=== PATIENT | female | born 2005 | race Caucasian/White ===

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

== ENCOUNTER → 2025-06-12 | Outpatient (CLI) | payer OTHER, SELFPAY | END | disposition home or self-care (01) | LOC: LABSPEC 15:18 | PROVIDERS: PCP Family Medicine; Referring Provider Otolaryngology; Visit Provider Otolaryngology | DX: J03.90 Acute tonsillitis, unspecified (principal) | CPT/HCPCS: 87070 ==

== ENCOUNTER 2025-06-21 09:31 | Emergency (ER) | payer OTHER, SELFPAY ==
[2025-06-21 09:31] VITALS: BP 129/88; PULSE 106; RESP 18; TEMP 37.3; O2SAT 98; BMI 34.5
[2025-06-21 09:32] VITALS: BP 129/88; PULSE 106; RESP 18; TEMP 37.3; O2SAT 98
--- OUTSIDE RECORDS SUMMARY | 2025-06-21 09:51 | XMS RPT_ITS | CCD ---
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 Refills Start End APRI 0.15 MG-0.03 MG TABLET 112 * 3 01/06/2025 12/08/2025 Route: ORAL Sig: Take 1 tablet by mouth once daily. Take active pills only. Start a new pack every 3 weeks. Medications Discontinued During This Encounter Prescriptions - Desogestrel-Ethinyl Estradiol (APRI) 0.15-0.03 mg per tablet (Discontinued) Take 1 tablet by mouth once daily. Disposition: Return in 1 year (on 01/06/2026) for Annual Exam. Follow-up and Disposition History for Encounter Date Provider Department Center 01/06/2025 [id number], RENEE [facility] Encounter Status:Closed by ANITHA HARRELL on 01/06/25 [facility] Knee 4 or More Viewson 10-17 Knee 4 or More Views [facility] Imaging Services [address] [place] [id number] Knee 4 or More Views MR#: [id number] Acct: [id number] Name: KIRTI MEJIAKIRSTY Rep #: [id number] : 2005 F 19 From: Garo Marti MD PCP: Dr. John Ordonez MD Status: REG CLI Study: Knee 4 or More Views Date of Exam: 10/17/24 Exam# [id number] Ordering Dr: Max Trinidad MD [id number] STUDY: X-RAY - RIGHT KNEE REASON FOR EXAM: Female, 19 years old. Decreased range of motion TECHNIQUE: 4 view(s) of the knee. COMPARISON: None. FINDINGS: Normal visualized distal femur. Normal visualized proximal tibia and fibula. Normal proximal tibiofibular articulation. Normal medial femorotibial compartment. Normal lateral femorotibial compartment. Normal patellofemoral articulation. The soft tissue structures are unremarkable. RAD/Knee 4 or More Views IMPRESSION: Normal x-ray examination of the knee. Electronically Signed: Walter Marti MD at 13:25 EST , CC: Dr. John Ordonez MD; Dr. Max Trinidad MD Hotel Reservationist: Signed [facility] [id number] 07-16-2021 Date of Onset [id number] Invalid Interpretation Code [facility] ([place]) Comment on above: Performed By: #### C OVD19 #### [place] [id number] Employed in Healthcare No [facility] ([place]) Comment on above: Performed By: #### C OVD19 #### [place] [address] First Test Unknown [facility] ([place]) Comment on above: Performed By: #### C OVD19 #### [place] [phone] Hospitalized No [facility] ([place]) Comment on above: Performed By: #### C OVD19 #### [place] [phone] ICU No [facility] ([place]) Comment on above: Performed By: #### C OVD19 #### [place] [address] Not [facility] ([place]) Comment on above: Performed By: #### C OVD19 #### [facility] [address] [place] [phone] Resides in Congregate Care Setting No Normal [facility] ([place]) Comment on above: Performed By: #### C OVD19 #### [facility] [address] [place] [address] SARS-CoV-2 (COVID-19) RNA KEYSHA+probe Ql (Unsp spec) Positive Abnormal Negative [facility] ([place]) Comment on above: Performed By: #### C OVD19 #### [facility] [address] [place] [address] SARS-CoV-2 (COVID-19) RNA KEYSHA+probe Ql (Unsp spec) Normal [facility] ([place]) Comment on above: Result Comment: Posi tive results are indicative of the presence of SARS-CoV-2 RNA; clinical correlation with patient history and other diagnostic information is necessary to determine patient infection status. Positive results do not rule out bacterial infection or co-infection with other viruses. The agent detected may not be the definite cause of disease. Laboratories within the [facility] and its territories are required to report all positive results to the appropriate public health authorities. Detection of analyte target(s) does not imply that the corresponding virus(es) are infectious or are the causative agents for clinical symptoms. There is a risk of false positive values resulting from cross-contamination by target organisms, their nucleic acids or amplified product, or from non-specific signals in the assay. BRUCE SARS-CoV-2 Assay is a Real-Time reverse-transcriptase polymerase chain reaction (RT-PCR) based qualitative in vitro diagnostic test intended for the qualitative detection of nucleic acid from the SARS-CoV-2 in nasopharyngeal swab specimens collected from individuals suspected of COVID-19 by their healthcare provider. Testing is limited to laboratories certified under the Clinical Laboratory Improvement Amendments of 1988 (CLIA), 42 U.S.C. ?263a, to perform moderate and high complexity tests. COVID-19 Int Performed By: #### C OVD19 #### [facility] [address] [place] [phone] Symptomatic as Defined by CDC Yes Normal [facility] ([place]) Comment on above: Performed By: #### C OVD19 #### [facility] [address] [place] [address] XR CHEST 1 VIEWon 07-16-2021 XR CHEST 1 VIEW ORIGINAL EXAMINATION: ONE XRAY VIEW OF THE CHEST07/16/2021 9:16 am CHEST ONE VIEW AP/PA TECHNIQUE: One view chest radiograph. COMPARISON: None. HISTORY: ORDERING SYSTEM PROVIDED HISTORY: Reason for Exam: SOB/cough/fever Shortness of breath cough and fever. FINDINGS: The cardiomediastinal silhouette appears unremarkable. There are no pleural effusions or pneumothoraces appreciated. No focal consolidations are appreciated. The osseous and soft tissue structures are unremarkable. IMPRESSION: 1. No evidence of acute cardiopulmonary process. I have personally reviewed the images of this examination, agree with resident's findings and interpretation. Interpreted by: Osito Magallon Preliminary Report By: Dereje Ordonez Electronically signed By Osito Magallon Dictated Date: 07/16/2021 9:44:59 AM Prelim Date: 07/16/2021 10:15:05 AM Sign Date: 07/16/2021 10:35:39 AM Ordering Provider: TERESITA Kumar [facility] ([place]) CBC Auto Differentialon 09-0 Basophils (Bld) [#/Vol] 0.0 10*3/uL 0 - 0.2 K/uL [place] Basophils/100 WBC (Bld) 0.3 % [place] Eosinophils (Bld) [#/Vol] 0.0 10*3/uL 0 - 0.7 K/uL [place] Eosinophils/100 WBC (Bld) 0.2 % [place] Erythrocyte distribution width (RBC) [Ratio] 13.4 % 11.5 - 14.5 % [place] Hematocrit (Bld) [Volume fraction] 35.3 % Low 36 - 46 % [place] Hemoglobin (Bld) [Mass/Vol] 11.8 g/dL Low 12 - 16 g/dL [place] Interpretation and review of laboratory results Abnormal [place] Lymphocytes (Bld) [#/Vol] 1.9 10*3/uL 1.2 - 5.2 K/uL [place] Lymphocytes/100 WBC (Bld) 16.7 % [place] MCH (RBC) [Entitic mass] 29.3 pg 25 - 35 pg [place] MCHC (RBC) [Mass/Vol] 33.5 % 31 - 37 % [place] MCV (RBC) [Entitic vol] 87.4 fL 78 - 102 fL [place] Monocytes (Bld) [#/Vol] 0.9 10*3/uL High 0.2 - 0.8 K/uL [place] Monocytes/100 WBC (Bld) 7.6 % [place] Neutrophils Absolute 8.4 K/uL High 1.8 - 8 K/uL [place] Neutrophils/100 WBC (Bld) 75.2 % [place] Platelets (Bld) [#/Vol] 276 10*3/uL 130 - 400 K/uL [place] RBC (Bld) [#/Vol] 4.04 10*6/uL [place] WBC (Bld) [#/Vol] 11.2 10*3/uL 4.5 - 13 K/uL [place] CBC With Platelet and Differ entialon 08-02-2020 Basophils (Bld) [#/Vol] 0.0 10*3/uL Normal 0.0-0.2 [place] Comment on above: Performed By: #### C BCWD #### [facility] [address] [place] [address] Basophils/100 WBC (Bld) 0.3 % Normal [place] Comment on above: Performed By: #### C BCWD #### [facility] [address] [place] [address] Eosinophils (Bld) [#/Vol] 0.0 10*3/uL Normal 0.0-0.7 [place] Comment on above: Performed By: #### C BCWD #### [facility] [address] [place] [address] Eosinophils/100 WBC (Bld) 0.2 % Normal [place] Comment on above: Performed By: #### C BCWD #### [facility] [address] [place] [address] Erythrocyte distribution width (RBC) [Ratio] 13.4 % Normal 11.5-14.5 [place] Comment on above: Performed By: #### C BCWD #### [facility] [address] [place] [address] Hematocrit (Bld) [Volume fraction] 35.3 % Low 36.0-46.0 [place] Comment on above: Performed By: #### C BCWD #### [facility] [address] [place] [address] Hemoglobin (Bld) [Mass/Vol] 11.8 g/dL Low 12.0-16.0 [place] Comment on above: Performed By: #### C BCWD #### [facility] [address] [place] [address] Lymphocytes (Bld) [#/Vol] 1.9 10*3/uL Normal 1.2-5.2 [place] Comment on above: Performed By: #### C BCWD #### [facility] [address] [place] [address] Lymphocytes/100 WBC (Bld) 16.7 % Normal [place] Comment on above: Performed By: #### C BCWD #### [facility] [address] [place] [address] MCH (RBC) [Entitic mass] 29.3 pg Normal 25.0-35.0 [place] Comment on above: Performed By: #### C BCWD #### [facility] [address] [place] [address] MCHC (RBC) [Mass/Vol] 33.5 % Normal 31.0-37.0 [place] Comment on above: Performed By: #### C BCWD #### [facility] [address] [place] [address] MCV (RBC) [Entitic vol] 87.4 fL Normal 78.0-102.0 [place] Comment on above: Performed By: #### C BCWD #### [facility] [address] [place] [address] Monocytes (Bld) [#/Vol] 0.9 10*3/uL Critically high 0.2-0.8 [place] Comment on above: Performed By: #### C BCWD #### [facility] [address] [place] [address] Monocytes/100 WBC (Bld) 7.6 % Normal [place] Comment on above: Performed By: #### C BCWD #### [facility] [address] [place] [address] Neutrophils (Bld) [#/Vol] 8.4 10*3/uL Critically high 1.8-8.0 [place] Comment on above: Performed By: #### C BCWD #### [facility] [address] [place] [address] Neutrophils/100 WBC (Bld) 75.2 % Normal [place] Comment on above: Performed By: #### C BCWD #### [facility] [address] [place] [address] Platelets (Bld) [#/Vol] 276 10*3/uL Normal 130-400 [place] Comment on above: Performed By: #### C BCWD #### [facility] [address] [place] [address] RBC (Bld) [#/Vol] 4.04 10*6/uL Low 4.10-5.10 [place] Comment on above: Performed By: #### C BCWD #### [facility] [address] [place] [address] WBC (Bld) [#/Vol] 11.2 10*3/uL Normal 4.5-13.0 [place] Comment on above: Performed By: #### C BCWD #### [facility] [address] [place] [address] CT ABDOMEN PELVIS W IV CONTR Kathie 08-02-2020 CT ABDOMEN PELVIS W IV CONTRAST EXAM: CT ABDOMEN PELVIS W IV CONTRAST History: Lower abdominal pain after injury. Technique: Multiple contiguous axial images were obtained of the abdomen and pelvis from an level of the lung bases through the ischial tuberosities with contrast. Multiplanar reformats were obtained. Comparison: None available Findings: Lung bases are clear. The liver, gallbladder, spleen, stomach, pancreas, and adrenal glands are within normal limits. The kidneys enhance uniformly. No urinary tract calculi or hydronephrosis. Urinary bladder is well distended. Abdominal aorta is nonaneurysmal . No retroperitoneal or abdominal/pelvic lymphadenopathy. No small bowel obstruction. No overt colonic mass or pericolonic inflammation. Appendix is within normal limits. No free fluid or free air. There is a focal area of skin thickening and subcutaneous soft tissue edema of the lower abdominal wall to the right of midline most likely relating to a contusion given the patient's history. Osseous structures of the abdomen/pelvis are within normal limits. IMPRESSION: No acute intra-abdominal process. Small area of soft tissue contusion of the right lower ventral abdominal wall. All CT scans at this facility use dose modulation, iterative reconstruction, and/or weight based dosing when appropriate to reduce radiation dose to as low as reasonably achievable. Interpreted by: Luca Ron DO Signed by: Luca Ron DO 08/03/20 Final result Normal [place] Comprehensive Metabolic Pane mariela 08-02-2020 Albumin [Mass/Vol] 4.5 g/dL Normal 3.5-4.6 [place] Comment on above: Performed By: #### C MP #### [facility] [address] [place] [address] ALP [Catalytic activity/Vol] 81 U/L Normal 0-187 [place] Comment on above: Performed By: #### C MP #### [facility] [address] [place] [address] ALT [Catalytic activity/Vol] 14 U/L Normal 0-33 [place] Comment on above: Performed By: #### C MP #### [facility] [address] [place] [address] Anion gap [Moles/Vol] 14 mmol/L Normal 9-15 [place] Comment on above: Performed By: #### C MP #### [facility] [address] [place] [address] AST [Catalytic activity/Vol] 24 U/L Normal 0-35 [place] Comment on above: Performed By: #### C MP #### [facility] [address] [place] [address] Bilirubin [Mass/Vol] 0.6 mg/dL Normal 0.2-0.7 [place] Comment on above: Performed By: #### C MP #### [facility] [address] [place] [address] Calcium [Mass/Vol] 9.7 mg/dL Normal 8.5-9.9 [place] Comment on above: Performed By: #### C MP #### [facility] [address] [place] [address] Chloride [Moles/Vol] 106 mmol/L Normal 95-107 [place] Comment on above: Performed By: #### C MP #### [facility] [address] [place] [address] CO2 [Moles/Vol] 22 mmol/L Normal 20-31 [facility] Comment on above: Performed By: #### C MP #### [facility] [address] [place] [address] Creatinine [Mass/Vol] 0.88 mg/dL Normal 0.50-0.90 [place] Comment on above: Performed By: #### C MP #### [facility] [address] [place] [address] GFR/1.73 sq M predicted among blacks MDRD (S/P/Bld) [Vol rate/Area] mL/min/{1.73_m2} Normal >60 [place] Comment on above: Result Comment: >60 mL/min/1.73m2 EGFR, calc. for ages 18 and older using the MDRD formula (not corrected for weight), is valid for stable renal function. Performed By: #### C MP #### [facility] [address] [place] [address] GFR/1.73 sq M.predicted MDRD (S/P/Bld) [Vol rate/Area] mL/min/{1.73_m2} Normal >60 [place] Comment on above: Result Comment: >60 mL/min/1.73m2 EGFR, calc. for ages 18 and older using the MDRD formula (not corrected for weight), is valid for stable renal function. Performed By: #### C MP #### [facility] [address] [place] [address] Globulin (S) [Mass/Vol] 3.1 g/dL Normal 2.3-3.5 [place] Comment on above: Performed By: #### C MP #### [facility] [address] [place] [address] Glucose [Mass/Vol] 86 mg/dL Normal 70-99 [place] Comment on above: Performed By: #### C MP #### [facility] [address] [place] [address] Potassium [Moles/Vol] 4.0 mmol/L Normal 3.4-4.9 [place] Comment on above: Performed By: #### C MP #### [facility] [address] [place] [address] Protein [Mass/Vol] 7.6 g/dL Normal 6.3-8.0 [place] Comment on above: Performed By: #### C MP #### [facility] [address] [place] [address] Sodium [Moles/Vol] 142 mmol/L Normal 135-144 [place] Comment on above: Performed By: #### C MP #### [facility] [address] [place] [address] Urea nitrogen [Mass/Vol] 19 mg/dL Critically high 5-18 [place] Comment on above: Performed By: #### C MP #### [facility] [address] [place] [address] Albumin [Mass/Vol] 4.5 g/dL 3.5 - 4.6 g/dL [place] ALP [Catalytic activity/Vol] 81 U/L 0 - 187 U/L [place] ALT [Catalytic activity/Vol] 14 U/L 0 - 33 U/L [place] Anion gap [Moles/Vol] 14 mmol/L [place] AST [Catalytic activity/Vol] 24 U/L 0 - 35 U/L [place] Bilirubin Ql (U) 0.6 mg/dL 0.2 - 0.7 mg/dL [place] Calcium [Mass/Vol] 9.7 mg/dL 8.5 - 9.9 mg/dL [place] Chloride [Moles/Vol] 106 mmol/L [place] CO2 [Moles/Vol] 22 mmol/L [place] Creatinine [Mass/Vol] 0.88 mg/dL 0.5 - 0.9 mg/dL [place] GFR >60.0 >60 [place] Comment on above: >60 mL/min/1.73m2 EG FR, calc. for ages 18 and older using the MDRD formula (not corrected for weight), is valid for stable renal function. GFR Non- >60.0 >60 [place] Comment on above: >60 mL/min/1.73m2 EG FR, calc. for ages 18 and older using the MDRD formula (not corrected for weight), is valid for stable renal function. Globulin (S) [Mass/Vol] 3.1 g/dL 2.3 - 3.5 g/dL [place] Glucose [Mass/Vol] 86 mg/dL 70 - 99 mg/dL [place] Interpretation and review of laboratory results Abnormal [place] Potassium [Moles/Vol] 4.0 mmol/L [place] Protein [Mass/Vol] 7.6 g/dL 6.3 - 8 g/dL [place] Sodium [Moles/Vol] 142 mmol/L [place] Urea nitrogen [Mass/Vol] 19 mg/dL High 5 - 18 mg/dL [place] HCG Qualitative, Serumon hCG Qual Negative [place] Lipaseon 08-02-2020 Lipase [Catalytic activity/Vol] 20 U/L Normal 95 [place] Comment on above: Performed By: #### L IPAS #### [facility] [address] [place] [address] Lipase [Catalytic activity/Vol] 20 U/L U/L [place] Magnesiumon 08-02-2020 Magnesium [Mass/Vol] 2.1 mg/dL Normal 1.7-2.2 [place] Comment on above: Performed By: #### M G #### [facility] [address] [facility] [address] Magnesium [Mass/Vol] 2.1 mg/dL 1.7 - 2.2 mg/dL [place] Serum HCG Qualitativeon HCG.beta subunit Qn Negative Normal [place] Comment on above: Performed By: #### S HCG #### [facility] [address] [facility] [address] Urinalysison 08-02-2020 Bilirubin Urine Negative Negative [place], [place] Blood, Urine Negative Negative [place], [place] Clarity, UA Clear Clear [place] Color, UA Yellow Straw/Yellow [place] Glucose, Ur Negative Negative mg/dL [place] Ketones Ql (U) Trace Negative mg/dL [place] Leukocyte esterase Test strip Ql (U) Negative Negative [place] Nitrite, Urine Negative Negative [place] pH, UA 5.5 [place] Protein (U) [Mass/Vol] Negative Negative mg/dL [place] Specific [place], UA 1.025 [place] Urobilinogen, Urine 0.2 <2.0 E.U./dL [facility] [place], [place] Urinalysis, reflex to micros copicon 08-02-2020 Bilirubin Ql (U) Negative Normal Negative [facility] Comment on above: Performed By: #### U A #### [facility] [address] [place] [address] Clarity (U) Clear Normal Clear [place] Comment on above: Performed By: #### U A #### [facility] [address] [place] [address] Color (U) Yellow Normal Straw/[place] Comment on above: Performed By: #### U A #### [facility] [address] [place] [address] Glucose Ql (U) Negative Normal Negative [facility] Comment on above: Performed By: #### U A #### [facility] [address] [place] [address] Hemoglobin Ql (U) Negative Normal Negative [facility] Comment on above: Performed By: #### U A #### [facility] [address] [place] [address] Ketones Ql (U) Trace Normal Negative [facility] Comment on above: Performed By: #### U A #### [facility] [address] [place] [address] Leukocyte esterase Test strip Ql (U) Negative Normal Negative [place] Comment on above: Performed By: #### U A #### [facility] [address] [place] [address] Nitrite Ql (U) Negative Normal Negative [facility] Comment on above: Performed By: #### U A #### [facility] [address] [place] [address] pH (U) 5.5 [pH] Normal 5.0-9.0 [place] Comment on above: Performed By: #### U A #### [facility] [address] [place] [address] Protein Ql (U) Negative Normal Negative [facility] Comment on above: Performed By: #### U A #### [facility] [address] [place] [address] Specific gravity (U) [Rel density] 1.025 Normal 1.005-1.03 [place] Comment on above: Performed By: #### U A #### [facility] [address] [place] [address] Urobilinogen Qn (U) 0.2 {Brent'U}/dL Normal < 2.0 [place] Comment on above: Performed By: #### U A #### [facility] [address] [place] [address] Vital Signs Date Time Vital Sign Value Performing Clinician Facility 04-07-2025 15:25-0400 Body mass index (BMI) [Ratio] 36.04 kg/m2 Anitha Farwell WHEEL MILL OPERATOR.SAFETY AND SECURITY OFFICER Work Phone: [facility] 04-07-2025 15:25-0400 Body weight 98.25 kg Anitha Farwell WHEEL MILL OPERATOR.SAFETY AND SECURITY OFFICER Work Phone: [facility] 04-07-2025 15:25-0400 Diastolic blood pressure 74 mm[Hg] Anitha Farwell WHEEL MILL OPERATOR.SAFETY AND SECURITY OFFICER Work Phone: [facility] 04-07-2025 15:25-0400 Systolic blood pressure 122 mm[Hg] Anitha Tavo WHEEL MILL OPERATOR.SAFETY AND SECURITY OFFICER Work Phone: [facility] 03-30-2025 09:50-0400 Body temperature 99.3 [degF] Dr. John Ordonez MD Work Phone: [facility] 03-30-2025 09:50-0400 Diastolic blood pressure 60 mm[Hg] Dr. John Ordonez MD Work Phone: [facility] 03-30-2025 09:50-0400 Heart rate 68 /min Dr. John Ordonez MD Work Phone: [facility] 03-30-2025 09:50-0400 Respiratory rate 14 /min Dr. John Ordonez MD Work Phone: [facility] 03-30-2025 09:50-0400 SaO2% (BldA) [Mass fraction] 98 % Dr. John Ordonez MD Work Phone: [facility] 03-30-2025 09:50-0400 Systolic blood pressure 108 mm[Hg] Dr. John Ordonez MD Work Phone: [facility] 01-06-2025 09:01-0500 Body height 165.1 cm Anitha Tavo WHEEL MILL OPERATOR.SAFETY AND SECURITY OFFICER Work Phone: [facility] 01-06-2025 09:01-0500 Body mass index (BMI) [Ratio] 35.78 kg/m2 Anitha Tavo WHEEL MILL OPERATOR.SAFETY AND SECURITY OFFICER Work Phone: [facility] 01-06-2025 09:01-0500 Body weight 97.52 kg Anitha Farwell WHEEL MILL OPERATOR.SAFETY AND SECURITY OFFICER Work Phone: [facility] 01-06-2025 09:01-0500 Diastolic blood pressure 78 mm[Hg] Anitha Tavo WHEEL MILL OPERATOR.SAFETY AND SECURITY OFFICER Work Phone: [facility] 01-06-2025 09:01-0500 Systolic blood pressure 112 mm[Hg] Anitha Farwell WHEEL MILL OPERATOR.SAFETY AND SECURITY OFFICER Work Phone: [facility] 01-16-2024 07:27-0500 Body weight 98.7 kg Anitha Tavo WHEEL MILL OPERATOR.SAFETY AND SECURITY OFFICER Work Phone: [facility] 01-16-2024 07:27-0500 Diastolic blood pressure 70 mm[Hg] Anitha Farwell WHEEL MILL OPERATOR.SAFETY AND SECURITY OFFICER Work Phone: [facility] 01-16-2024 07:27-0500 Systolic blood pressure 118 mm[Hg] Anitha Tavo WHEEL MILL OPERATOR.SAFETY AND SECURITY OFFICER Work Phone: [facility] [facility] 01-04-2024 09:45-0500 Body weight 98.34 kg Anitha Farwell WHEEL MILL OPERATOR.SAFETY AND SECURITY OFFICER Work Phone: [facility] 01-04-2024 09:45-0500 Diastolic blood pressure 66 mm[Hg] Anitha Farwell WHEEL MILL OPERATOR.SAFETY AND SECURITY OFFICER Work Phone: [facility] 01-04-2024 09:45-0500 Systolic blood pressure 104 mm[Hg] Anitha Tavo WHEEL MILL OPERATOR.SAFETY AND SECURITY OFFICER Work Phone: [facility] 05-26-2023 07:16-0400 Body weight 106.14 kg Anitha Farwell WHEEL MILL OPERATOR.SAFETY AND SECURITY OFFICER Work Phone: [facility] 05-26-2023 07:16-0400 Diastolic blood pressure 74 mm[Hg] Anitha Farwell WHEEL MILL OPERATOR.SAFETY AND SECURITY OFFICER Work Phone: [facility] 05-26-2023 07:16-0400 Systolic blood pressure 118 mm[Hg] Anitha Tavo WHEEL MILL OPERATOR.SAFETY AND SECURITY OFFICER Work Phone: [facility] 08-02-2020 20:10-0400 BP Diastolic 70 mm[Hg] [facility] [place] 08-02-2020 20:10-0400 BP Systolic 116 mm[Hg] [facility] [place] 08-02-2020 20:10-0400 Pulse (Heart Rate) 69 /min [facility], [place] 08-02-2020 20:10-0400 Pulse Oximetry 96 % [facility] [place] 08-02-2020 18:46-0400 Body Temperature 98.71 [degF] [facility], [place] 08-02-2020 18:46-0400 Body weight 101.7 kg [place], [place] 08-02-2020 18:46-0400 Respiratory Rate 22 /min [facility] Encounters Encounter Date Encounter Type Care Provider Facility Start: 06-12-2025 End: 06-12-[address] John Ordonez MD Work Phone: -Laboratory Specimen Start: 06-12-2025 End: 06-12-[address] Matias Luis MD -Laboratory Specimen Work Phone: Start: 06-12-2025 End: 06-12-2025 ambulatory John Ordonez Facility:[facility] Start: 04-08-2025 End: 04-08-2025 ambulatory Anitha Tavo WHEEL MILL OPERATOR.SAFETY AND SECURITY OFFICER Work Phone: OB/Gynecology Comment on above: Test Start: 04-08-2025 End: 06-08-2025 Follow-up encounter Anihta Tavo WHEEL MILL OPERATOR.SAFETY AND SECURITY OFFICER Work Phone: OB/Gynecology Start: 04-07-2025 End: 04-07-2025 Patient encounter procedure Anitha Farwell WHEEL MILL OPERATOR.SAFETY AND SECURITY OFFICER Work Phone: OB/Gynecology Comment on above: Vaginal discharge (P rimary Dx); Vaginal odor Start: 04-07-2025 End: 04-07-2025 ambulatory ANITHA TAVO Facility:[facility] Start: 03-30-2025 End: 03-30-2025 Patient encounter procedure Gideon Dahl DELIVERER [facility] Work Phone: Start: 03-30-2025 End: 03-30-2025 ambulatory John Ordonez Facility:[facility] Start: 01-15-2025 End: 01-17-2025 ambulatory Anitha Farwell WHEEL MILL OPERATOR.SAFETY AND SECURITY OFFICER Work Phone: OB/Gynecology Comment on above: Supplements Start: 01-06-2025 End: 01-06-2025 ambulatory Anitha Tavo WHEEL MILL OPERATOR.SAFETY AND SECURITY OFFICER Work Phone: OB/Gynecology Start: 01-06-2025 End: 01-06-2025 Patient encounter procedure Anitha Farwell WHEEL MILL OPERATOR.SAFETY AND SECURITY OFFICER Work Phone: OB/Gynecology Comment on above: Encounter for gyneco logical examination (general) (routine) without abnormal findings (Primary Dx); Encounter for surveillance of contraceptive pills Appointment Start: 01-06-2025 End: 01-06-2025 Patient encounter status Anitha Farwell WHEEL MILL OPERATOR.SAFETY AND SECURITY OFFICER Work Phone: [facility] Start: 11-18-2024 End: 11-18-2024 Refill Anitha Farwell WHEEL MILL OPERATOR.SAFETY AND SECURITY OFFICER Work Phone: OB/Gynecology Comment on above: Refill Request Medication Start: 10-17-2024 End: 10-17-2024 ambulatory John Ordonez Facility:[facility] Start: 01-19-2024 Telephone encounter Anitha [facility] WHEEL MILL OPERATOR.SAFETY AND SECURITY OFFICER Work Phone: OB/Gynecology Comment on above: Results Start: 01-16-2024 End: 01-16-2024 Patient encounter procedure Anitha Farwell WHEEL MILL OPERATOR.SAFETY AND SECURITY OFFICER Work Phone: OB/Gynecology Comment on above: Abnormal uterine ble eding (AUB) (Primary Dx); Vaginal irritation Start: 01-10-2024 ambulatory Anitha Farwell WHEEL MILL OPERATOR.SAFETY AND SECURITY OFFICER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 exercised in using it in the provision of clinical care. This summary normalizes information from multiple sources, and as a consequence, information in this document may materially change the coding, format and clinical context of patient data. In addition, data may be omitted in some cases. CLINICAL DECISIONS SHOULD BE BASED ON THE PRIMARY CLINICAL RECORDS. [employer] [facility]. provides no warranty or guarantee of the accuracy or completeness of information in this document.
--- NOTE | 2025-06-21 10:00 | EX.ED.VIS.UR ---
HPI HPI - URI History of Present Illness Chief Complaint: Sore Throat Informant: patient Narrative Narrative: Patient is a 20-year-old female with no significant past medical history presenting for recurrent sore throat, fever and tonsillar swelling. Patient has had 4 episodes over the past few months similar to this. She most recently was on a course of Augmentin 2 weeks ago. States she got better and had a throat culture before my Dr. Luis which was negative so she was told that her tonsils do not need to come out. She developed vomiting a couple days ago and then a fever 2 days ago with a Tmax of 1-2.6. Been taking ibuprofen but states last night it was not helping. Did not have anything today. Notes that she has had increased pain and swelling of her tonsils. It started to make her feel short of breath. She states after vomiting she did have some bleeding from her tonsils. She came in for further evaluation. has not had a Monospot test throughout this. She denies any rash or other complaints. ROS ROS ED Constitutional Constitutional ED: Reports chills and fever(s) Eyes Eyes: Denies change in vision ENT ENT ED: Reports sore throat; Denies rhinorrhea Cardiovascular Cardiovascular: Denies chest pain Respiratory/Chest Respiratory/Chest: Reports dyspnea and other Details: Reports shortness of breath associated to tonsillar swelling ; Denies cough Gastrointestinal Gastrointestinal: Reports vomiting; Denies abdominal pain Musculoskeletal Musculoskeletal: Reports myalgias; Denies arthralgias Neurologic Neurologic: Reports headache(s); Denies weakness PFSH PFSH Medical History No active medical problems Medical History no medical history Home Medications ?Medication ?Instructions ?Recorded ?Last Taken ?Type desogestrel 0.15 mg-ethinyl 1 tab PO QDAY 05/31/24 06/01/24 History estradiol 0.03 mg tablet (Enskyce) ondansetron 4 mg disintegrating 4 mg PO Q6H PRN nausea and 06/01/24 Unknown Rx tablet vomiting #10 tabs cefdinir 300 mg capsule 300 mg PO BID 10 days #20 caps 06/21/25 Unknown Rx Allergy/AdvReac Type Severity Reaction Status Date / Time No Known Allergies Allergy Verified 06/21/25 09:32 Family History no significant family his Surgical History No pertinent past surgical history Surgical History no surgical history Social History Smoking Status: Never smoker alcohol intake: never substance use type: does not use EXAM Physical Exam Const Vital Signs: 06/21/25 09:31 06/21/25 09:32 06/21/25 11:21 Temperature 99.1 F 99.1 F 99.1 F Temperature Source Oral Oral Pulse Rate 106 H 106 H 106 H Respiratory Rate 18 18 18 Blood Pressure 129/88 H 129/88 H 129/88 H Blood Pressure Mean 101 101 101 Pulse Ox 98 98 98 Oxygen Delivery Method Room Air Room Air Positive well nourished and well developed General Appearance ED: well developed and NAD HEENT Reports moist mucous membranes HEENT Narrative: Uvula is midline. Significant swelling of the bilateral tonsils that are touching. Slightly muffled voice. No trismus. No significant exudate present. Eyes PERRL Neck no lymphadenopathy and supple Neck Narrative: Normal range of motion of the neck Resp normal respiratory effort and clear to auscultation bilaterally Auscultation: Negative for rhonchi or wheezes GI non-tender Extremity normal to inspection Neuro oriented x3 Sensorium / Orientation: alert Motor Exam: Negative for general weakness Psych mental status grossly normal Skin Lesions: no lesions Rashes: no rashes MDM MDM MDM Narrative Medical decision making narrative: Patient evaluated for recurrent pharyngeal pain and swelling. Does have significant tonsillar swelling but presentation not consistent with angioedema or peritonsillar/retropharyngeal abscess. Will obtain strep swab as well as Monospot. Will give a dose of Decadron to help with edema in the emergency room. Patient declines any nausea medication or antipyretic at this time. Vital signs are normal. She is handling her secretions well. Patient feels mildly improved with Decadron. Monospot is negative. Strep swab is negative. Will restart her on antibiotics however use a cephalosporin at this time given her degree of tonsillar swelling. Will resend strep culture prior to starting antibiotics to hopefully help and aid of further treatment. Encouraged her to continue to follow-up with ENT. Given return precautions such as drooling, trismus, fever or worsening symptoms or no improvement. She verbalized understanding of this. Discharged home in stable condition. Patient does not have any significant exudate making gonococcal pharyngitis less likely. Lab Data Labs: Laboratory Results - last 24 hr 06/21/25 10:03 Monoscreen Negative Discharge Plan Triage Chief Complaint: Sore Throat ED Provider: Gretel Cochran Dx/Rx/DC Orders Clinical Impression: Acute pharyngitis, unspecified, Bilateral swelling of tonsils Instructions: ED Pharyngitis, Report Pending Prescriptions: New cefdinir 300 mg capsule 300 mg PO BID 10 Days Qty: 20 0RF No Action desogestrel-ethinyl estradiol [Enskyce] 0.15-0.03 mg tablet 1 tab PO QDAY ondansetron 4 mg tablet,disintegrating 4 mg PO Q6H PRN (Reason: nausea and vomiting) Qty: 10 0RF Primary Care Provider: John Ordonez Referrals: John Ordonez MD [Primary Care Provider] - Matias Luis MD [Med Staff - Active Staff] - Activity Restrictions/Additional Instructions: Gargle with cold water. Make sure drinking plenty of fluids. Alternate Tylenol and ibuprofen as needed for pain and fevers. Take all antibiotics as prescribed. We did send off a throat culture as your strep and Monospot test were negative today. This will take a couple days to come back. Importantly continue to follow-up with ENT. If you feel that you are drooling because you cannot handle your secretions, or having a harder time opening your mouth or have worsening difficulty breathing please return to the emergency room. Print Language: Turkish Disposition Disposition: Home, Self Care
[2025-06-21 10:46] LABS: Internal QC Validated? YES +Cl - CLEAR BKGD; Record Kit Lot#, Mono 13241430
[2025-06-21 11:21] VITALS: BP 129/88; PULSE 106; RESP 18; TEMP 37.3; O2SAT 98
== END 2025-06-21 12:01 | disposition home or self-care (01) ==
PROVIDERS: Emergency Provider Emergency Medicine; PCP Family Medicine; Visit Provider Emergency Medicine
DX: J02.9 Acute pharyngitis, unspecified (principal); J35.8 Other chronic diseases of tonsils and adenoids
CPT/HCPCS: 86308; 87070; 87651; 99282